=== PATIENT | male | born 1980 | race Caucasian/White ===

== ENCOUNTER 2024-02-25 20:30 | Emergency (ER) | payer BC ==
--- NOTE | 2024-02-25 20:43 | ERPHSYRPT ---
- History of Present Illness Time Seen by Provider: 02/25/24 20:35 Source: patient Physician History: 43yo m presents by private vehicle for finger injury. Pt states he was using a table saw directly [employer], states he hit is 2nd digit w/ the table saw, immediately had fair amount of bleeding. Pt states he rinsed the injured finger under cold water before coming to ED. Pt denies any LOC, denies any cp, fevers, sob. Timing/Duration: today Quality: painful Severity: mild Location: hands Possible Causes: other (table saw) Allergies/Adverse Reactions: No Known Drug Allergies Allergy (Unverified 02/25/24 20:36) Home Medications: No Reportable Medications [No Reported Medications] 02/25/24 [History] - Review of Systems Constitutional: No Symptoms Respiratory: No Symptoms Cardiac: No Symptoms Skin: Skin Lesions - Nursing Vital Signs Nursing Vital Signs: Initial Vital Signs Temperature 98 F 02/25/24 20:36 Pulse Rate 93 H 02/25/24 20:36 Respiratory Rate 14 02/25/24 20:36 Blood Pressure 173/111 02/25/24 20:36 O2 Sat by Pulse Oximetry 97 02/25/24 20:36 Pain Scale Pain Intensity 1 - Physical Exam General Appearance: no apparent distress, alert Respiratory Exam: normal breath sounds, lungs clear, No respiratory distress Cardiovascular Exam: regular rate/rhythm, normal heart sounds Extremity Exam: other (small evulsion distal tip soft tissue of index finger, hemostatic, no clean edges visible for suturing, no foreign body) Neurologic Exam: alert, oriented x 3, cooperative Skin Exam: normal color, warm, dry, laceration, other (small evulsion distal tip soft tissue of index finger, hemostatic, no clean edges visible for suturing, no foreign body) O2 Delivery: Room Air Ordered Tests: Active Orders 24 hr Category Date Time Status Wound Care STAT Care 02/25/24 20:57 Completed Medication Summary Discontinued Medications Generic Name Dose Route Start Last Admin Trade Name Freq PRN Reason Stop Dose Admin Bacitracin Zinc 0.9 each 02/25/24 20:54 02/25/24 20:56 Bacitracin Packet 1 Each Pckt TP 02/25/24 20:55 0.9 each STAT ONE Administration Bacitracin Zinc Confirm 02/25/24 20:55 Bacitracin Packet 1 Each Pckt Administered 02/25/24 20:56 Dose 1 each .ROUTE .STK-MED ONE Diphtheria/Tetanus/Acell Pertussis 0.5 ml 02/25/24 20:45 02/25/24 20:50 Tdap --Diph,Pertuss(Acell),Tet Vac/Pf 0.5 Ml Vial IM 02/25/24 20:46 0.5 ml .ONCE ONE Administration Diphtheria/Tetanus/Acell Pertussis Confirm 02/25/24 20:48 Tdap --Diph,Pertuss(Acell),Tet Vac/Pf 0.5 Ml Vial Administered 02/25/24 20:49 Dose 0.5 ml IM .STK-MED ONE - Progress Progress: improved Progress Note: 02/25/24 22:45 wound irrigated profusely, no foreign body found no indication for sutures of small avulsion wound cleaned w/ hibiclines gauze dressing applied, bacitracin ointment applied and sent home w/ pt instructed to keep wound clean/dry, change dressing daily hypertensive in ED - pt states he is waiting for appt with PCP's office to discuss bp asymptomatic htn - no BETANCOURT, no blurry vision reported 02/25/24 22:50 Tdap injection given in ED Counseled pt/family regarding: need for follow-up Medical Desision Making - Risk of complications Minimal Risk: Minimal risk of morbidity - Departure Departure Disposition: Home Clinical Impression: Avulsion of skin of finger without complication Qualifiers: Encounter type: initial encounter Qualified Code(s): S61.209A - Unspecified open wound of unspecified finger without damage to nail, initial encounter Condition: Stable Critical Care Time: No Referrals: DOCTOR,NO FAMILY [Primary Care Provider] - Follow up/PCP as directed Instructions: Nail Avulsion Additional Instructions: Obtain PCP to discuss elevated blood pressures keep wound clean/dry, change dressing daily provided w/ bacitracin ointment and additional dressing recommended pt f/u at our ED or [facility] to have wound re-examined next week return to ED if: develop fevers, lose feeling in finger, develop pain radiating into the arm
[2024-02-25 20:44] VITALS: RESP 14; TEMP 98
[2024-02-25] MEDS ORDERED: Adacel Vial IM ONE (20:48)
[2024-02-25] MEDS: Adacel Vial IM ONE (20:50)
[2024-02-25] MEDS ORDERED: BACIGUENT PACKET ONE (20:55)
[2024-02-25] MEDS: BACIGUENT PACKET TP ONE (20:56)
[2024-02-25 21:30] VITALS: BP 169/111; PULSE 91; O2SAT 96
== END 2024-02-25 21:26 | disposition home or self-care (01) ==
LOC: ED 20:30
DX: S61.211A Laceration without foreign body of left index finger without damage to nail, initial encounter (principal); W31.2XXA Contact with powered woodworking and forming machines, initial encounter; Z23 Encounter for immunization
CPT/HCPCS: 90471; 90715; 99282; A9270-GY